=== PATIENT | female | born 1945 | race Caucasian/White ===

== ENCOUNTER 2016-05-05 13:06 | Outpatient (CLI) | payer MEDICARE ==
[~2016-05-05] VITALS: Ht 167.6 cm; Wt 70.3 kg
[~2016-05-05 13:06] MED LIST: AMLO5TAB2 PO; CARV25TA PO; CLCX200C; DICL50TA4 PO; ESCT10T PO; FLC1T PO; GABA300C PO; HCT25T PO; HYDR-3583 PO; HYDR1TAB86 PO; HYTRIN 1 MG; LISI1TAB6 PO; MELO-195 PO; METO100T PO; MTX2.5T PO; SIMV10TA3 PO; ZIAC
--- OUTSIDE RECORDS SUMMARY | 2016-05-05 13:09 | XMS REPORT | Continuity of Care Document ---
Author Author [facility] Organization [facility] Address Unknown Phone Unavailable Care Team Providers Care Trial Mgr Name Role Phone KELLEN MCHUGH MD PCP Insurance Providers Payer Name Policy Number Subscriber Name Relationship [employer] [id number] Luke Varghese 18 Self / Same As Patient [employer] [facility] Supp [id number] Luke Varghese 16 Self / Same As Patient Advance Directives Directive Response Recorded Date/Time Advance Directives Yes 09/07/15 9:37am Health Care Power of Technical Support Technician Nelli rose tate 09/07/15 9:37am Organ Donor No 09/07/15 9:37am Resuscitation Status Full Code 09/07/15 9:37am Problems No problem information available. Medications Current Home Medications Medication Dose Units Route Directions Days/Qty Instructions Start Date Methotrexate 2.5 Mg 8 Mg Oral Q Thursday07/26/07 Folic Acid 1 Mg 1 Mg Oral Daily 07/26/07 Escitalopram Oxalate 10 Mg 20 Mg Oral Daily 07/26/07 Carvedilol 25 Mg 25 Mg Oral Twice A Day 09/06/15 Diclofenac Potassium 50 Mg 50 Mg Oral Daily 09/06/15 Lisinopril/Hydrochlorothiazide 1 Each 1 Each Oral Daily 09/06/15 Amlodipine Besylate 5 Mg 5 Mg Oral Daily 30 09/07/15 Past Home Medications Medication Directions Ordered Status Celecoxib 200 Mg Capsule, 07/26/07 Discontinued [Ziac 5MG] , 07/26/07 Discontinued [Hytrin 1MG] , 07/26/07 Discontinued Hydrochlorothiazide 25 Mg Tablet, 37.5 Mg Oral Daily 03/25/10 Discontinued Metoprolol Tartrate 100 Mg Tablet, 1 Each Oral Twice A Day 03/25/10 Discontinued Meloxicam (Mobic) 15 Mg Tablet, 1 Each Oral Daily 03/25/10 Discontinued Simvastatin 10 Mg Tablet, 10 Mg Oral Bedtime 03/25/10 Discontinued Gabapentin 300 Mg Capsule, 1 Each Oral Three Times A Day 03/27/10 Discontinued Acetaminophen/Hydrocodone Bitart (Lortab) 1 Each Tablet, 1 Each Oral Q4hr Prn 03/27/10 Discontinued Acetaminophen/Hydrocodone Bitart 1 Tab Tab, 1 Ea Oral Q 4 - 6 Hr Prn as needed 03/27/10 Discontinued Social History Social History Problem Response Recorded Date/Time Recent Foreign Travel No 09/07/2015 9:46am Smoking Status Never a Smoker 09/07/2015 9:43am Query Response Start Date Stop Date Smoking Status Never a Smoker Hospital Discharge Instructions Patient Instructions Physician Instructions Follow up/Plan Take extra lisinopril/hct when you get home start amlodipine tonite at bedtime nightly. Take 2 of the 01/28 lisinopril each morning will call out strength which is to taken one each am when out of 01/15.5 dose. Heart Healthy Diet Do not lift arm on side of device placement above head for 4 weeks. Do not push and pull heavy objects for 4 weeks. Activity as tolerated. Leave dressing on until follow up at the office. Plan of Care Discharge Date 09/07/15 12:05pm Instructions/Education Provided COLONOSCOPY Colonoscopy (DC) Prescriptions See Medication Section Functional Status No functional status results. Allergies, Adverse Reactions, Alerts No known allergies. Immunizations Name Given Type Date of Pneumonia Vaccine 04/07/14 Historical Vital Signs Acute Vital Signs Vital Response Date/Time Temperature (Fahrenheit) 99.1 degrees F (97.6 - 99.5) 09/07/2015 12:05pm Temperature (Calculated Celsius) 37.25189 degrees C (36.4 - 37.5) 09/07/2015 12:05pm Temperature Source Tympanic 09/07/2015 12:05pm Pulse Rate (adult) 69 bpm (60 - 90) 09/07/2015 12:05pm Respiratory Rate 20 bpm (12 - 24) 09/07/2015 12:05pm O2 Sat by Pulse Oximetry 96 % (88 - 100) 09/07/2015 12:05pm Blood Pressure 178/100 mm Hg 09/07/2015 12:05pm Blood Pressure Mean 116 mm Hg 08/31/2015 1:27pm Pain Pain Intensity 0 09/07/2015 12:05pm Height (Feet) 5 feet 09/07/2015 9:42am Height (Inches) 6.00 inches 09/07/2015 9:42am Height (Calculated Centimeters) 167.463531 cm 09/07/2015 9:42am Weight (Pounds) 160 pounds 09/07/2015 9:42am Weight (Ounces) 0.0 oz 09/07/2015 9:42am Weight (Calculated Grams) 84682.780 gm 09/07/2015 9:42am Weight (Calculated Kilograms) 72.527187 kilograms 09/07/2015 9:42am Calculated BMI 25.8 09/07/2015 9:42am Results No known relevant diagnostic tests, laboratory data and/or discharge summary. Procedures No known history of procedures. Encounters Encounter Location Arrival/Admit Date Discharge/Depart Date Attending Provider Departed [facility] 09/07/15 8:58am 12:05pm KELLEN MCHUGH MD Departed Clinic [facility] 09/06/15 12:11pm 09/06/15 12: 14pm KELLEN MCHUGH MD Departed Clinic [facility] 08/31/15 1:06pm 08/31/15 1: 54pm KULDIP BEE MD Registered Clinic [facility] 08/21/15 9:10am KULDIP BEE MD
[2016-05-05] MEDS ORDERED: BUPIVACAINE 0.25% 30 ML (SENSORCAINE) VIAL ONE (13:12)
[2016-05-05] MEDS ORDERED: TRIAMCINOLONE ACET (KENALOG-40) 40 MG/ML 1 ML VIAL ONE (13:12)
[2016-05-05] MEDS ORDERED: LIDOCAINE 1% INJ 20 ML (XYLOCAINE) VIAL ONE (13:12)
[2016-05-05 13:24] VITALS: BP 154/89
[2016-05-05 14:00] VITALS: BP 133/98
--- NOTE | 2016-05-05 14:49 | Pain Medicine-Procedure ---
Procedure Pre-Op/Post-Op Diagnosis Diagnosis: sacrococcygeal disorder Indications for Operation Hip pain Attending Surgeon Lucy Procedure Date of Service: May 05, 2016 Procedure: Flouroscopic guided bilateral sacroiliac joint injection PROCEDURE IN DETAIL: After obtaining informed consent from the patient, the patient's chart was reviewed. The patient was then brought to the procedure room and placed in the prone position. A time out was performed. The back was prepped with antiseptic solution and under fluoroscopic guidance the patient's sacroiliac joint on both sides was identified. Attention was first turned to the right sacroiliac joint injection where 2 mL's of 1% lidocaine was used to anesthetize the skin and then two 22-gauge 3.5 inch spinal needles were inserted and advanced under flouroscopic guidance until they were in the lower 1 /3 of the right sacroiliac joint. Next, attention was then turned to the left sacroiliac joint injection where 2 mL's of 1% lidocaine was used to anesthetize the skin and then two 22-gauge 3.5 inch spinal needles were inserted and advance under flouroscopic guidance until they were in the lower 1/3 of the sacroiliac joint on the left side. After negative aspiration, each needle was injected with 40 mg of Kenalog along with 2 mL's of 0.25% marcaine. All needles were then flushed with 1% lidocaine and then removed. Band-Aids were applied to all the sites and the patient tolerated the procedure well and was taken to the recovery area in stable condition. Complications None KULDIP BEE MD May 05, 2016 2:49 pm
== END 2016-05-05 14:03 | disposition home or self-care (01) ==
LOC: CARD 13:06
PROVIDERS: ATTEND Pain Medicine Pain Medicine
DX: M53.3 Sacrococcygeal disorders, not elsewhere classified (principal); Z79.899 Other long term (current) drug therapy
CPT/HCPCS: 27096